=== PATIENT | male | born 1970 | race Hispanic/Latino ===

== ENCOUNTER 2021-05-20 03:22 | Emergency (ER) | payer BC ==
[2021-05-20 04:04] LABS: Blood, Urine 250 (Negative); Clarity Bloody (Clear); Glucose, Urine (Dipstick) Normal (Negative); Leukocyte 25 (Negative); Specific Gravity, Urine 1.015 (1.002-1.036)
[2021-05-20 04:38] LABS: Nitrite Unable to Interpret (Negative)
[2021-05-20 04:39] LABS: Bilirubin Unable to Interpret (Negative); Ketone, Urine Unable to Interpret mg/dL (Negative); Protein, Urine (Dipstick) Unable to Interpret mg/dl (Neg-Trace); Urobilinogen UNABLE TO INTERPRET mg/dL (Less than 2)
[2021-05-20 04:41] LABS: Bacteria/HPF 1+ HPF (None Seen); RBC/HPF Greater than 50 HPF (0-3); Squamous Epithelial 0-3 HPF (0-3)
[2021-05-20 04:42] LABS: Transitional Epithelial 0-3 HPF (None Seen)
== END 2021-05-20 04:45 | disposition home or self-care (01) ==
LOC: CSHERS 03:22
DX: R33.9 Retention of urine, unspecified (principal); N40.0 Benign prostatic hyperplasia without lower urinary tract symptoms
CPT/HCPCS: 51702; 81003; 81015

== ENCOUNTER 2021-05-25 07:44 | Outpatient (CLI) | payer BC | END 2021-05-25 07:45 | disposition home or self-care (01) | LOC: CSHULT 07:44 | PROVIDERS: ATTEND Urology | DX: R60.0 Localized edema (principal) ==

== ENCOUNTER 2022-11-02 10:45 | Emergency (ER) | payer BC ==
[2022-11-02] MEDS ORDERED: Lidocaine 1% w/Epinephrine 1:200K 30 ML VIAL ONE (11:15)
[2022-11-02] MEDS ORDERED: Boostrix 0.5 ML (Tdap) VIAL (>/=7 yrs of age) ONE (11:43)
== END 2022-11-02 11:43 | disposition home or self-care (01) ==
LOC: CSHERS 10:45
DX: S61.012A Laceration without foreign body of left thumb without damage to nail, initial encounter (principal); W26.0XXA Contact with knife, initial encounter; Z23 Encounter for immunization
CPT/HCPCS: 90471; 90715; 99282